=== PATIENT | male | born 1980 | race Two or more races ===

== ENCOUNTER 2022-06-14 01:37 | Emergency (ER) | payer OTHER ==
[~2022-06-14] VITALS: Ht 195.6 cm; Wt 104.0 kg
[2022-06-14] MEDS ORDERED: 0.9% SODIUM CHLORIDE 10 ML SYRINGE IVP PRN (02:15)
[2022-06-14] MEDS ORDERED: SODIUM CHLORIDE 0.9% 0 ML ONE (02:36)
[2022-06-14] MEDS ORDERED: IOHEXOL 350 MG/ML 100 ML VIAL ONE (02:36)
[2022-06-14 02:40] LABS: HEMOGLOBIN 12.2 g/dL (13.5-17.5); MEAN CORPUSCULAR HGB CONC 34.4 G/dL (31.0-37.0); MONOCYTES # (AUTO) 0.7 K/uL (0.1-1.0)
[2022-06-14 02:43] LABS: BASOPHILS % (AUTO) 0.6 % (0.0-2.0); EOSINOPHILS % (AUTO) 0.9 % (1.0-6.0); HEMATOCRIT 35.5 % (41-53); LYMPHOCYTES % (AUTO) 23.5 % (22.0-44.0); MEAN CORPUSCULAR HEMOGLOBIN 31.8 pg (26.0-34.0); MEAN CORPUSCULAR VOLUME 92 fL (80-100); MONOCYTES % (AUTO) 7.5 % (2.0-9.0); NEUTROPHILS # (AUTO) 5.9 K/uL (1.8-7.7); NEUTROPHILS % (AUTO) 67.5 % (40.0-70.0); PLATELET COUNT (AUTO) 282 K/uL (150-450); RED BLOOD CELL COUNT(AUTO) 3.84 MIL/uL (4.50-5.90)
[2022-06-14 02:50] LABS: ANION GAP 11 mmol/L (8-16); CALCIUM, TOTAL 8.1 mg/dL (8.8-10.5); CARBON DIOXIDE 24 mmol/L (22-29); CHLORIDE 104 mmol/L (98-107); CREATININE 0.88 mg/dL (0.60-1.30); GLOMERULAR FILTR. RATE CALC > 60 mL/min (>60); GLUCOSE,RANDOM 88 mg/dL (70-110); POTASSIUM 3.4 mmol/L (3.5-5.1); SODIUM SERUM 139 mmol/L (136-145); UREA NITROGEN, BLOOD 15 mg/dL (7-18)
[2022-06-14 02:55] LABS: ALANINE AMINOTRANSFERASE 39 U/L (12-78); ALBUMIN 3.7 g/dL (3.4-5.0); ALKALINE PHOSPHATASE 89 U/L (46-116); BILIRUBIN,TOTAL 0.2 mg/dL (0.1-1.0); TOTAL PROTEIN, SERUM 7.2 g/dL (6.4-8.2)
[2022-06-14 02:59] LABS: ASPARTATE AMINOTRANSFERASE 21 U/L (15-37)
[2022-06-14] MEDS ORDERED: SODIUM CHLORIDE 0.9% 100 ML ONE (03:13)
[2022-06-14 03:17] LABS: LACTIC ACID 2.1 mmol/L (0.4-2.0)
[2022-06-14 03:49] VITALS: BP 124/69
== END 2022-06-14 05:22 | disposition home or self-care (01) ==
LOC: EMS 01:38
DX: L03.115 Cellulitis of right lower limb (principal); F11.10 Opioid abuse, uncomplicated; F32.A Depression, unspecified; F15.90 Other stimulant use, unspecified, uncomplicated; Z98.890 Other specified postprocedural states
CPT/HCPCS: 99284; 80053; 83605; 85025; 87040; 36415; 93005; J7050; Q9967